=== PATIENT | female | born 2000 | race Two or more races ===

== ENCOUNTER 2023-05-02 13:47 | Emergency (ER) | payer OTHER ==
[~2023-05-02] VITALS: Ht 154.9 cm; Wt 54.5 kg
[~2023-05-02 13:47] MED LIST: NOCURR
[2023-05-02 13:49] VITALS: BP 112/64; PULSE 71; RESP 18; TEMP 98.5
[2023-05-02] MEDS ORDERED: PB/HYOSCY/ATR/SCOP/LIDO/MAALOX 55 ML BOTTLE PO ONE (14:15)
[2023-05-02 14:24] LABS: BASOPHILS % (AUTO) 0.4 % (0.0-2.0); EOSINOPHILS % (AUTO) 2.9 % (1.0-6.0); HEMATOCRIT 41.4 % (36-46); HEMOGLOBIN 14.2 g/dL (12.0-16.0); LYMPHOCYTES # (AUTO) 2.5 K/uL (1.0-4.8); LYMPHOCYTES % (AUTO) 33.3 % (22.0-44.0); MEAN CORPUSCULAR HEMOGLOBIN 30.2 pg (26.0-34.0); MEAN CORPUSCULAR HGB CONC 34.3 G/dL (31.0-37.0); MEAN CORPUSCULAR VOLUME 88 fL (80-100); MONOCYTES # (AUTO) 0.6 K/uL (0.1-1.0); NEUTROPHILS # (AUTO) 4.1 K/uL (1.8-7.7); NEUTROPHILS % (AUTO) 55.4 % (40.0-70.0); PLATELET COUNT (AUTO) 304 K/uL (150-450); RED CELL DISTRIBUTION WIDTH 12.5 % (11.5-14.5)
[2023-05-02 14:34] LABS: ANION GAP 8 mmol/L (8-16); CALCIUM, TOTAL 8.8 mg/dL (8.8-10.5); CARBON DIOXIDE 28 mmol/L (22-29); CHLORIDE 105 mmol/L (98-107); CREATININE 0.59 mg/dL (0.60-1.30); GLOMERULAR FILTR. RATE CALC > 60 mL/min (>60); GLUCOSE,RANDOM 96 mg/dL (70-110); POTASSIUM 4.1 mmol/L (3.5-5.1); SODIUM SERUM 141 mmol/L (136-145)
[2023-05-02 14:45] LABS: ALANINE AMINOTRANSFERASE 23 U/L (12-78); ALBUMIN 3.7 g/dL (3.4-5.0); ALKALINE PHOSPHATASE 119 U/L (46-116); ASPARTATE AMINOTRANSFERASE 25 U/L (15-37); BILIRUBIN,TOTAL 0.9 mg/dL (0.1-1.0); HCG,QUANTITATIVE < 1 mIU/mL (0-6); LIPASE 165 U/L (73-393); TOTAL PROTEIN, SERUM 7.5 g/dL (6.4-8.2)
[2023-05-02 15:07] LABS: APPEARANCE,URINE HAZY (CLEAR); BILIRUBIN,URINE NEGATIVE (NEGATIVE); GLUCOSE, URINE (UA) NEGATIVE (NEGATIVE); KETONES,URINE NEGATIVE (NEGATIVE); LEUKOCYTE ESTERASE ,URINE NEGATIVE (NEGATIVE); NITRATE,URINE NEGATIVE (NEGATIVE); OCCULT BLOOD,URINE NEGATIVE (NEGATIVE); PH,URINE 7.5 (5.0-8.0); PROTEIN,URINE NEGATIVE (NEGATIVE); SPECIFIC GRAVITIY, URINE 1.023 (1.003-1.030); UROBILINOGEN,URINE <=1.0 mg/dL (<=1.0)
[2023-05-02] MEDS ORDERED: FAMO20 PO (16:10)
== END 2023-05-02 16:31 | disposition home or self-care (01) ==
LOC: EMS 14:04
DX: R10.12 Left upper quadrant pain (principal)
CPT/HCPCS: 80053; 81003; 83690; 84702; 85025; 99283

== ENCOUNTER 2023-06-10 19:23 | Emergency (ER) | payer OTHER ==
[~2023-06-10] VITALS: Ht 157.5 cm; Wt 54.5 kg
[~2023-06-10 19:23] MED LIST changes: +FAMO20 PO; -NOCURR
[2023-06-10] MEDS ORDERED: CYCLOBENZAPRINE HCL 10 MG TABLET PO ONE (22:15)
[2023-06-10] MEDS ORDERED: IBUPROFEN 400 MG TABLET PO ONE (22:15)
[2023-06-10] MEDS ORDERED: CYCL-448 PO (22:22)
[2023-06-10] MEDS ORDERED: IBUP-1506 PO (22:22)
[2023-06-10 22:31] VITALS: BP 119/81; PULSE 71; RESP 16; TEMP 97.3
== END 2023-06-10 22:36 | disposition home or self-care (01) ==
LOC: EMS 19:24
DX: S13.4XXA Sprain of ligaments of cervical spine, initial encounter (principal); R51.9 Headache, unspecified; M25.512 Pain in left shoulder; Y04.8XXA Assault by other bodily force, initial encounter; Y93.89 Activity, other specified; Y92.89 Other specified places as the place of occurrence of the external cause; Y99.8 Other external cause status
CPT/HCPCS: 99283

== ENCOUNTER 2024-11-24 00:58 | Emergency (ER) | payer MEDICAID, OTHER ==
[~2024-11-24] VITALS: Ht 154.9 cm; Wt 56.8 kg
[~2024-11-24 00:58] MED LIST changes: +CYCL-448 PO; +IBUP-1506 PO
[2024-11-24] MEDS ORDERED: SODIUM CHLORIDE 0.9% 100 ML ONE (02:26)
[2024-11-24 02:38] LABS: BASOPHILS % (AUTO) 0.2 % (0.0-2.0); EOSINOPHILS % (AUTO) 6.9 % (1.0-6.0); HEMATOCRIT 41.1 % (36-46); HEMOGLOBIN 14.2 g/dL (12.0-16.0); LYMPHOCYTES % (AUTO) 17.9 % (22.0-44.0); MEAN CORPUSCULAR HGB CONC 34.5 G/dL (31.0-37.0); MEAN CORPUSCULAR VOLUME 87 fL (80-100); MONOCYTES % (AUTO) 8.6 % (2.0-9.0); NEUTROPHILS # (AUTO) 7.6 K/uL (1.8-7.7); NEUTROPHILS % (AUTO) 66.4 % (40.0-70.0); PLATELET COUNT (AUTO) 310 K/uL (150-450); RED BLOOD CELL COUNT(AUTO) 4.73 MIL/uL (4.00-5.20); RED CELL DISTRIBUTION WIDTH 12.4 % (11.5-14.5); WHITE BLOOD COUNT (AUTO) 11.4 K/uL (4.5-11.0)
[2024-11-24 02:46] LABS: ANION GAP 8 mmol/L (8-16); CALCIUM, TOTAL 8.1 mg/dL (8.8-10.5); CARBON DIOXIDE 27 mmol/L (22-29); CHLORIDE 105 mmol/L (98-107); CREATININE 0.82 mg/dL (0.60-1.30); GLOMERULAR FILTR. RATE CALC > 60 mL/min (>60); GLUCOSE,RANDOM 95 mg/dL (70-110); POTASSIUM 3.5 mmol/L (3.5-5.1); SODIUM SERUM 140 mmol/L (136-145); UREA NITROGEN, BLOOD 7 mg/dL (7-18)
[2024-11-24 02:59] LABS: ALANINE AMINOTRANSFERASE 25 U/L (12-78); ALBUMIN 3.4 g/dL (3.4-5.0); ALKALINE PHOSPHATASE 120 U/L (46-116); ASPARTATE AMINOTRANSFERASE 20 U/L (15-37); BILIRUBIN,TOTAL 0.8 mg/dL (0.1-1.0); LIPASE 55 U/L (16-77); TOTAL PROTEIN, SERUM 6.8 g/dL (6.4-8.2)
[2024-11-24] MEDS ORDERED: KETOROLAC TROMETHAMINE 30 MG/ML VIAL IVP ONE (04:30)
[2024-11-24] MEDS ORDERED: ACET-2247 PO (04:51)
[2024-11-24] MEDS ORDERED: ONDA-104 PO (04:51)
[2024-11-24] MEDS: DiphenhydrAMINE HCL 50 MG/ML VIAL IVP ONE (05:11)
[2024-11-24] MEDS: ONDANSETRON HCL 4 MG/2 ML VIAL IVP ONE (05:11)
[2024-11-24] MEDS: METOCLOPRAMIDE HCL 5 MG/ML 2 ML VIAL IVP ONE (05:12)
[2024-11-24] MEDS: KETOROLAC TROMETHAMINE 15 MG/ML VIAL IVP ONE (05:12)
[2024-11-24] MEDS: ACETAMINOPHEN 325 MG TABLET PO ONE (05:12)
[2024-11-24] MEDS: SODIUM CHLORIDE 0.9% 1,000 ML IV ONE (05:13)
[2024-11-24 06:00] VITALS: BP 119/65; PULSE 68; RESP 18; TEMP 97.8; O2SAT 99
== END 2024-11-24 06:10 | disposition home or self-care (01) ==
LOC: EMS 00:58
DX: K52.9 Noninfective gastroenteritis and colitis, unspecified (principal); R51.9 Headache, unspecified
CPT/HCPCS: 99285; 74177; 96374; 96375; 96361; 80048; 80076; 83690; 84703; 85025; 36415; J1885; J1200; J2765; J2405; J7030; J7050